=== PATIENT | female | born 1980 | race Caucasian/White ===

== ENCOUNTER 2017-06-30 09:15 | Emergency (ER) | payer OTHER ==
--- NOTE | 2017-06-30 09:55 | EDPHY ---
H & P Time Seen by Provider: 06/30/17 09:36 HPI/ROS: CHIEF COMPLAINT: Rash on left-side of trunk HISTORY OF PRESENT ILLNESS: Patient 1st developed rash just over a week ago, started on her left lateral abdominal wall. Initially started painful and itchy and she put some tea tree oil on it and it started to have a couple of blisters. Subsequently developed another episode of rash medially also painful and a little bit itchy. No fevers or chills and no known contact or exposure. No eye symptoms or respiratory symptoms. REVIEW OF SYSTEMS: As above PAST MEDICAL HISTORY: negative Social history: From [place], currently in [place] with family for spring General Appearance: Alert and conversant, cooperative. Rash left flank and left abdomen. The initial area is 2 cm diameter irregular with some blisters that have scabbed over, the medial area is smaller but still in a dermatomal distribution. Does not cross the midline. No lymphangitis. No fluctuance. No other rash. Emergency Department course/MDM: Differential considered including but not limited to shingles, cellulitis, contact dermatitis, scabies, bug bite. I think it is much more likely to be shingles given its dermatomal distribution. She does not have known insect bites, does not appear septic or toxic. Warned to keep it covered avoid anyone with immunocompromised or until fully resolved. She will follow up in [place] if not improving in a week. Course of oral steroids for her itching, would also treat her symptoms if she has contact dermatitis. Smoking Status: Never smoked Constitutional: Initial Vital Signs Temperature (C) 36.3 C 06/30/17 09:20 Heart Rate 97 06/30/17 09:20 Respiratory Rate 16 06/30/17 09:20 Blood Pressure 114/63 06/30/17 09:20 O2 Sat (%) 98 06/30/17 09:20 O2 Delivery Mode Room Air Allergies/Adverse Reactions: No Known Allergies Allergy (Unverified 06/30/17 09:19) Home Medications: Medication Instructions Recorded predniSONE 10 mg PO AD #15 tab 06/30/17 MDM/Departure - Depart Disposition: Home, Routine, Self-Care Clinical Impression: Shingles rash Qualifiers: Herpes zoster complications: without complications Qualified Code(s): B02.9 - Zoster without complications Condition: Good Instructions: Shingles (ED) Additional Instructions: Also possibly contact dermatitis. Keep covered especially if around anyone with compromised immune system or , until rash completely resolved. Please follow-up with your primary care doctor in [place] if still symptomatic in a week or the rash is worse. Prescriptions: predniSONE 10 mg PO AD #15 tab Referrals: Binh White MD [Medical Doctor] - As per Instructions
[2017-06-30 10:10] VITALS: BP 114/79; PULSE 72; RESP 14; TEMP 98.6; O2SAT 99
== END 2017-06-30 10:08 | disposition home or self-care (01) ==
DX: B02.9 Zoster without complications (principal)